=== PATIENT | male | born 1980 | race American Indian/Alaskan Native ===

== ENCOUNTER 2021-10-05 11:55 | Emergency (ER) | payer SELFPAY ==
[2021-10-05] MEDS ORDERED: IBUPROFEN 800 MG TAB PO ONE (13:17)
[2021-10-05] MEDS ORDERED: HYDROcodone/ACETAMINOPHEN 5-325 MG TAB PO ONE (13:17)
--- NOTE | 2021-10-05 13:26 | Emergency Department Report ---
<PABLOBETINA RASMUSSEN - Last Filed: 10/05/21 19:17> ED General Adult HPI - General Chief complaint: Back Pain/Injury Stated complaint: LT SIDE PAIN Time Seen by Provider: 10/05/21 13:10 - Related Data Previous Rx's Medication Instructions Recorded Last Taken Type Albuterol Sulfate [Proair 90 mcg IH Q4HR PRN #2 aer.[email or web address] 10/05/21 Unknown Rx Respiclick] Azithromycin [Zithromax Z-TREVIN] 250 mg PO DAILY 5 Days #6 10/05/21 Unknown Rx Benzonatate [Tessalon Perles] 100 mg PO Q8HR PRN #30 capsule 10/05/21 Unknown Rx Ibuprofen [Motrin 400 MG tab] 400 mg PO TID 7 Days #21 tablet 10/05/21 Unknown Rx Nicotine Polacrilex [Nicotine Gum] 4 mg BC PRN #1 pack 10/05/21 Unknown Rx Allergies Allergy/AdvReac Type Severity Reaction Status Date / Time No Known Allergies Allergy Unverified 10/05/21 12:14 ED Past Medical Hx - Medications Home Medications: Home Medications Medication Instructions Recorded Confirmed Last Taken Type Albuterol Sulfate [Proair 90 mcg IH Q4HR PRN #2 aer.pow.ba 10/05/21 Unknown Rx Respiclick] Azithromycin [Zithromax Z-TREVIN] 250 mg PO DAILY 5 Days #6 10/05/21 Unknown Rx Benzonatate [Tessalon Perles] 100 mg PO Q8HR PRN #30 capsule 10/05/21 Unknown Rx Ibuprofen [Motrin 400 MG tab] 400 mg PO TID 7 Days #21 tablet 10/05/21 Unknown Rx Nicotine Polacrilex [Nicotine Gum] 4 mg BC PRN #1 pack 10/05/21 Unknown Rx ED Course - Reevaluation(s) Reevaluation #1: 10/05/21 18:56 went to look for patient he was not in the chair; we called name overhead, no answer discharge as elopement d dimer was negative 10/05/21 19:17 Patient back in room. States he was using the restroom. Explained significance of findings. Patient counseled that he is likely experiencing natural history of tobacco use and bronchitis. Specifically counseled to discontinue tobacco use, as it is a risk factor for cancer. On he did endorse a small amount of hemoptysis. This is likely secondary to bronchitis. ED Medical Decision Making - Lab Data Result diagrams: 10/05/21 13:58 10/05/21 13:58 Vital Signs 10/05/21 10/05/21 12:19 12:20 Temperature 98 F 98.3 F Pulse Rate 106 H Respiratory 16 Rate Blood Pressure 117/69 [Right] O2 Sat by Pulse 98 Oximetry Lab Results 10/05/21 10/05/21 10/05/21 Range/Units 13:58 13:58 13:58 WBC 8.8 (4.5-11.0) K/mm3 RBC 5.15 H (3.65-5.03) M/mm3 Hgb 13.5 (11.8-15.2) gm/dl Hct 43.0 (35.5-45.6) % MCV 84 (84-94) fl MCH 26 L (28-32) pg MCHC 32 (32-34) % RDW 13.9 (13.2-15.2) % Plt Count 260 (140-440) K/mm3 Lymph % (Auto) 30.8 (13.4-35.0) % Mcintosh % (Auto) 6.6 (0.0-7.3) % Eos % (Auto) 2.4 (0.0-4.3) % Baso % (Auto) 0.5 (0.0-1.8) % Lymph # (Auto) 2.7 (1.2-5.4) K/mm3 Mcintosh # (Auto) 0.6 (0.0-0.8) K/mm3 Eos # (Auto) 0.2 (0.0-0.4) K/mm3 Baso # (Auto) 0.0 (0.0-0.1) K/mm3 Seg Neutrophils % 59.7 (40.0-70.0) % Seg Neutrophils # 5.3 (1.8-7.7) K/mm3 D-Dimer 160.52 (0-234) ng/mlDDU Sodium 133 L (137-145) mmol/L Potassium 4.7 (3.6-5.0) mmol/L Chloride 96.6 L (98-107) mmol/L Carbon Dioxide 24 (22-30) mmol/L Anion Gap 17 mmol/L BUN 10 (9-20) mg/dL Creatinine 0.8 (0.8-1.3) mg/dL Estimated GFR > 60 ml/min BUN/Creatinine Ratio 13 % Glucose 93 (75-100) mg/dL Calcium 9.6 (8.4-10.2) mg/dL - Radiology Data Radiology results: pending, report reviewed, image reviewed CHEST 2 VIEWS INDICATION / CLINICAL INFORMATION: left sided pleuritic pain. CO MPARISON: None available. FINDINGS: SUPPORT DEVICES: None. HEART / MEDIASTINUM: No significant abnormality. LUNGS / PLEURA: No significant pulmonary abnormality. No significant pleural effusion. No pneumothorax. ADDITIONAL FINDINGS: No significant additional findings. IMPRESSION: 1. No acute abnormality of the chest. Signer Name: Angel Ramos MD Signed: 10/05/2021 12:52 PM Workstation Name: [id number] ED Disposition Clinical Impression: Pleurisy, Bronchitis, Tobacco use Disposition: HOME / SELF CARE / HOMELESS Is pt being admited?: No Does the pt Need Aspirin: No Condition: Undetermined Instructions: Pleurisy, [id number], Community-Acquired Pneumonia, Adult, [id number], Chronic Bronchitis (ED) Additional Instructions: Strongly recommend that patient discontinue tobacco consumption. Consumption of tobacco is a risk factor for lung cancer. Recommend that patient follow-up with a primary care doctor or cash application clerk for pleuritic pain and history of coughing up blood within the next 7 to 10 days. Not following up as recommended may result in failure to detect/rule out lung cancer/tumor/malignancy. Please take the medications as needed and directed. Please return to the emergency room right away with new pain, worsened pain, migration of pain, projectile vomiting, change in mental status, confusion, inability tolerate liquid feeds, new, worsened or different symptoms not present on the initial emergency room evaluation Dr. Roque is a local primary care doctor. Dr. Clark is a local cash application clerk Prescriptions: Ibuprofen [Motrin 400 MG tab] 400 mg PO TID 7 Days #21 tablet Nicotine Polacrilex [Nicotine Gum] 4 mg BC PRN #1 pack Albuterol Sulfate [Proair Respiclick] 90 mcg IH Q4HR PRN #2 aer.pow.ba PRN Reason: Wheezing Benzonatate [Tessalon Perles] 100 mg PO Q8HR PRN #30 capsule PRN Reason: Cough Azithromycin [Zithromax Z-TREVIN] 250 mg PO DAILY 5 Days #6 Referrals: MERLYN GARNETT MD [Staff Physician] - 3-5 Days AKUA CLARK MD [Staff Physician] - 3-5 Days <WILDA GIFFORD - Last Filed: 10/08/21 20:54> ED General Adult HPI - General PUI?: Yes Source: patient Mode of arrival: Ambulatory Limitations: No Limitations - History of Present Illness Initial comments: Chief complaint: Left chest pain HPI: This is a 40-year-old male with history of tobacco use who presents with left sided chest pain at the lower rib cage for the past 3 days. Hurts with inspiration. Hurts with cough. Hurts to lay on the area. No trauma. Has had a chronic cough for several years. He denies fever, shortness of breath, abdominal pain. No sick contacts. He denies recent travel. He works as a fork lift team technician. Denies leg pain. -: Gradual, days(s) (3 days) Location: chest (Left lower chest in the anterior axillary line lower rib cage) Severity scale (0 -10): 7 Consistency: constant Worsens with: movement, other (Inspiration cough) Associated Symptoms: cough (Chronic cough) Treatments Prior to Arrival: none ED Review of Systems ROS: Stated complaint: LT SIDE PAIN Other details as noted in HPI Comment: All other systems reviewed and negative Constitutional: denies: chills, fever, malaise Respiratory: cough Cardiovascular: chest pain Gastrointestinal: denies: abdominal pain, nausea ED Past Medical Hx - Past Medical History Previous Medical History?: No - Surgical History Past Surgical History?: No - Family History Family history: hypertension - Social History Smoking Status: Current Every Day Smoker Substance Use Type: Alcohol, Marijuana ED Physical Exam - General Limitations: No Limitations General appearance: alert, in no apparent distress - Head Head exam: Present: atraumatic, normocephalic - Eye Eye exam: Present: normal appearance - ENT ENT exam: Present: mucous membranes moist - Neck Neck exam: Present: normal inspection, full ROM - Respiratory Respiratory exam: Present: normal lung sounds bilaterally. Absent: respiratory distress, wheezes, rales, rhonchi - Cardiovascular Cardiovascular Exam: Present: regular rate, normal rhythm, normal heart sounds. Absent: systolic murmur, diastolic murmur, rubs, gallop - GI/Abdominal GI/Abdominal exam: Present: soft, normal bowel sounds. Absent: distended, tenderness, guarding, rebound - Rectal Rectal exam: Present: deferred - Extremities Exam Extremities exam: Present: normal inspection - Back Exam Back exam: Present: normal inspection - Neurological Exam Neurological exam: Present: alert, oriented X3 - Psychiatric Psychiatric exam: Present: normal affect, normal mood - Skin Skin exam: Present: warm, dry, intact, normal color. Absent: rash ED Course Vital Signs 10/05/21 10/05/21 10/05/21 12:19 12:20 19:19 Temperature 98 F 98.3 F 98.4 F Pulse Rate 106 H 100 H Respiratory 16 18 Rate Blood Pressure 117/69 157/79 [Right] O2 Sat by Pulse 98 96 Oximetry ED Medical Decision Making - Lab Data Result diagrams: 10/05/21 13:58 10/05/21 13:58 Critical care attestation.: If time is entered above; I have spent that time in minutes in the direct care of this critically ill patient, excluding procedure time. ED Disposition Is pt being admited?: No Does the pt Need Aspirin: No
--- NOTE | 2021-10-05 13:56 | XRay Report ---
CHEST 2 VIEWS INDICATION / CLINICAL INFORMATION: left sided pleuritic pain. COMPARISON: None available. FINDINGS: SUPPORT DEVICES: None. HEART / MEDIASTINUM: No significant abnormality. LUNGS / PLEURA: No significant pulmonary abnormality. No significant pleural effusion. No pneumothora x. ADDITIONAL FINDINGS: No significant additional findings. IMPRESSION: 1. No acute abnormality of the chest. Signer Name: Angel Ramos MD Signed: 10/05/2021 1:52 PM Workstation Name: [id number]
[2021-10-05 14:50] LABS: BUN/Creatinine Ratio 13; Blood Urea Nitrogen 10 mg/dL (9-20); Calcium 9.6 mg/dL (8.4-10.2); Hemolysis Index 1
[2021-10-05 15:02] LABS: Basophils % (Auto) 0.5 % (0.0-1.8); Eosinophils # (Auto) 0.2 K/mm3 (0.0-0.4); Eosinophils % (Auto) 2.4 % (0.0-4.3); Hemoglobin 13.5 gm/dl (11.8-15.2); Lymphocytes # (Auto) 2.7 K/mm3 (1.2-5.4); Lymphocytes % (Auto) 30.8 % (13.4-35.0); Mean Corpuscular HGB Conc 32 % (32-34); Mean Corpuscular Volume 84 fl (84-94); Monocytes # (Auto) 0.6 K/mm3 (0.0-0.8); Monocytes % (Auto) 6.6 % (0.0-7.3); Platelet Count 260 K/mm3 (140-440); Red Blood Count 5.15 M/mm3 (3.65-5.03); Red Cell Distribution Width 13.9 % (13.2-15.2)
[2021-10-05 19:20] VITALS: BP 157/79
== END 2021-10-05 19:29 | disposition home or self-care (01) ==
LOC: ED 11:55
DX: R09.1 Pleurisy (principal); J40 Bronchitis, not specified as acute or chronic; Z72.0 Tobacco use; F10.20 Alcohol dependence, uncomplicated; F12.90 Cannabis use, unspecified, uncomplicated
CPT/HCPCS: 36415; 71046; 80048; 85025; 85379; 99283